=== PATIENT | female | born 1940 | race Caucasian/White ===

== ENCOUNTER 2016-11-30 09:31 | Emergency (ER) | payer MEDICARE, OTHER ==
[~2016-11-30] VITALS: Ht 167.6 cm; Wt 93.0 kg
[~2016-11-30 09:31] MED LIST: AMBIEN10 MG PO; CALCIUM600 MG PO; CARDIZEM CD360 MG PO; CATAPRES0.1 MG PO; CYCLOBENZAPRINE10 MG PO; DIOVAN160 MG PO; EFFEXOR XR75 MG PO; OMEPRAZOLE40 MG PO; ONDANSETRON ODT4 MG PO
[2016-11-30] MEDS ORDERED: BACLOFEN10 MG PO (10:40)
[2016-11-30] MEDS ORDERED: ATORVASTATIN CA80 MG PO (10:40)
[2016-11-30] MEDS ORDERED: WELLBUTRIN XL150 MG PO (10:40)
[2016-11-30] MEDS ORDERED: BUSPIRONE HCL5 MG PO (10:41)
[2016-11-30] MEDS ORDERED: CLOPIDOGREL75 MG PO (10:41)
[2016-11-30] MEDS ORDERED: GLUCAGEN1 M1 INJ (10:41)
[2016-11-30] MEDS ORDERED: ACID CONTROLLER20 MG PO (10:41)
[2016-11-30] MEDS ORDERED: GLUTOSE 1537.5 GM PO (10:42)
[2016-11-30] MEDS ORDERED: LORAZEPAM0.5 MG PO (10:43)
[2016-11-30] MEDS ORDERED: TRAMADOL HCL50 MG PO (10:44)
[2016-11-30] MEDS ORDERED: COZAAR100 MG PO (10:44)
[2016-11-30] MEDS ORDERED: PANTOPRAZOLE SO40 MG PO (10:44)
[2016-11-30] MEDS ORDERED: MACROBID 100 M100 MG PO (12:09)
--- NOTE | 2016-11-30 15:24 | EKG ---
[facility] [address] [facility] [place] [address] Signed Sinus tachycardia Anterolateral infarct (cited on or before 26-FEB-2016) Abnormal ECG When compared with ECG of 26-FEB-2016 09:44, Questionable change in initial forces of Lateral leads Confirmed by MATEO MENDEZ MD ([id number]) on 11/30/2016 3:24:34 PM Electronically Signed By: MATEO MENDEZ MD 11/30/16 1524 PATIENT NAME: FAVIOLAJUAN CARLOS JANET Electrocardiogram DATE OF : 38 PHYSICIAN: MATEO MENDEZ MD REPORT #: [id number] REPORT IS CONFIDENTIAL AND NOT TO BE RELEASED WITHOUT AUTHORIZATION
[2016-12-01] MEDS ORDERED: NORCO 5-325 TA1 EACH PO (09:22)
== END 2016-11-30 13:00 | disposition home or self-care (01) ==
LOC: ED 09:31
DX: N39.0 Urinary tract infection, site not specified (principal); R40.4 Transient alteration of awareness; R47.1 Dysarthria and anarthria; Z90.710 Acquired absence of both cervix and uterus; Z90.49 Acquired absence of other specified parts of digestive tract; Z88.2 Allergy status to sulfonamides; Z88.8 Allergy status to other drugs, medicaments and biological substances; Z79.899 Other long term (current) drug therapy
CPT/HCPCS: 80053; 81001; 85025; 87077; 87088; 87186; 93005; 93010; 96374; 96375; 99284; J0696; J2405

== ENCOUNTER 2016-12-01 06:54 | Emergency (ER) | payer MEDICARE, OTHER ==
[~2016-12-01] VITALS: Ht 167.6 cm; Wt 93.0 kg
[~2016-12-01 06:54] MED LIST changes: +ACID CONTROLLER20 MG PO; +ATORVASTATIN CA80 MG PO; +BACLOFEN10 MG PO; +BUSPIRONE HCL5 MG PO; +CLOPIDOGREL75 MG PO; +COZAAR100 MG PO; +GLUCAGEN1 M1 INJ; +GLUTOSE 1537.5 GM PO; +LORAZEPAM0.5 MG PO; +MACROBID 100 M100 MG PO; +PANTOPRAZOLE SO40 MG PO; +TRAMADOL HCL50 MG PO; +WELLBUTRIN XL150 MG PO
[2016-12-01] MEDS ORDERED: NORCO 5-325 TA1 EACH PO (09:22)
== END 2016-12-01 10:05 | disposition home or self-care (01) ==
LOC: ED 06:54
DX: S06.0X0A Concussion without loss of consciousness, initial encounter (principal); S16.1XXA Strain of muscle, fascia and tendon at neck level, initial encounter; S00.83XA Contusion of other part of head, initial encounter; E11.9 Type 2 diabetes mellitus without complications; Z87.01 Personal history of pneumonia (recurrent); Z86.73 Personal history of transient ischemic attack (TIA), and cerebral infarction without residual deficits; Z90.710 Acquired absence of both cervix and uterus; Z90.89 Acquired absence of other organs; Z90.49 Acquired absence of other specified parts of digestive tract; Z88.2 Allergy status to sulfonamides; Z88.6 Allergy status to analgesic agent; Z88.8 Allergy status to other drugs, medicaments and biological substances; Z79.899 Other long term (current) drug therapy; W06.XXXA Fall from bed, initial encounter
CPT/HCPCS: 70450; 70486; 72125; 73560; 96374; 96375; 99284; J1170; J2405

== ENCOUNTER 2016-12-05 09:23 | Emergency (ER) | payer MEDICARE, OTHER ==
[~2016-12-05] VITALS: Ht 167.6 cm; Wt 93.0 kg
[~2016-12-05 09:23] MED LIST changes: +NORCO 5-325 TA1 EACH PO
== END 2016-12-05 12:40 | disposition home or self-care (01) ==
LOC: ED 09:23
DX: K59.00 Constipation, unspecified (principal); R11.2 Nausea with vomiting, unspecified; Z88.2 Allergy status to sulfonamides; Z88.6 Allergy status to analgesic agent; Z88.8 Allergy status to other drugs, medicaments and biological substances; Z86.73 Personal history of transient ischemic attack (TIA), and cerebral infarction without residual deficits
CPT/HCPCS: 74000; 80053; 83690; 85025; 96361; 96374; 99283; J2405; J7030

== ENCOUNTER 2016-12-14 15:26 | Emergency (ER) | payer MEDICARE, OTHER ==
[~2016-12-14] VITALS: Ht 167.6 cm; Wt 93.0 kg
[2016-12-14] MEDS ORDERED: AMOX TR-K CLV1 EAC1 PO (15:39)
[2016-12-14] MEDS ORDERED: PLAVIX75 MG PO (19:17)
== END 2016-12-14 20:17 | disposition home or self-care (01) ==
LOC: ED 15:26
DX: S05.12XA Contusion of eyeball and orbital tissues, left eye, initial encounter (principal); S00.81XA Abrasion of other part of head, initial encounter; Z79.01 Long term (current) use of anticoagulants; Z87.01 Personal history of pneumonia (recurrent); Z86.73 Personal history of transient ischemic attack (TIA), and cerebral infarction without residual deficits; Z90.710 Acquired absence of both cervix and uterus; Z90.89 Acquired absence of other organs; Z90.49 Acquired absence of other specified parts of digestive tract; Z88.2 Allergy status to sulfonamides; Z88.6 Allergy status to analgesic agent; Z88.8 Allergy status to other drugs, medicaments and biological substances; Z79.899 Other long term (current) drug therapy; W19.XXXA Unspecified fall, initial encounter
CPT/HCPCS: 70450; 72125; 85610; 85730; 99284

== ENCOUNTER 2017-02-13 19:29 | Emergency (ER) | payer MEDICARE, OTHER ==
[~2017-02-13] VITALS: Ht 167.6 cm; Wt 93.0 kg
[~2017-02-13 19:29] MED LIST changes: +AMOX TR-K CLV1 EAC1 PO; +PLAVIX75 MG PO
== END 2017-02-13 21:18 | disposition home or self-care (01) ==
LOC: ED 19:29
DX: S40.011A Contusion of right shoulder, initial encounter (principal); Z86.73 Personal history of transient ischemic attack (TIA), and cerebral infarction without residual deficits; Z90.710 Acquired absence of both cervix and uterus; Z90.49 Acquired absence of other specified parts of digestive tract; Z98.890 Other specified postprocedural states; Z88.2 Allergy status to sulfonamides; Z88.6 Allergy status to analgesic agent; Z88.8 Allergy status to other drugs, medicaments and biological substances; Z79.899 Other long term (current) drug therapy; W05.0XXA Fall from non-moving wheelchair, initial encounter
CPT/HCPCS: 73030; 99283

== ENCOUNTER 2017-04-30 12:15 | Emergency (ER) | payer MEDICARE, OTHER ==
[~2017-04-30] VITALS: Ht 167.6 cm; Wt 79.4 kg
[2017-04-30] MEDS ORDERED: LOPERAMIDE2 MG PO (12:39)
== END 2017-04-30 14:33 | disposition home or self-care (01) ==
LOC: ED 12:15
DX: T14.8XXA Other injury of unspecified body region, initial encounter (principal); S70.02XA Contusion of left hip, initial encounter; M32.9 Systemic lupus erythematosus, unspecified; Z86.73 Personal history of transient ischemic attack (TIA), and cerebral infarction without residual deficits; Z88.0 Allergy status to penicillin; Z88.2 Allergy status to sulfonamides; Z88.8 Allergy status to other drugs, medicaments and biological substances; Z79.899 Other long term (current) drug therapy; Z90.710 Acquired absence of both cervix and uterus; Z90.49 Acquired absence of other specified parts of digestive tract; G62.9 Polyneuropathy, unspecified; W18.30XA Fall on same level, unspecified, initial encounter
CPT/HCPCS: 73502; 99283

== ENCOUNTER 2017-04-30 18:34 | Emergency (ER) | payer MEDICARE, OTHER ==
[~2017-04-30] VITALS: Ht 167.6 cm; Wt 79.4 kg
[~2017-04-30 18:34] MED LIST changes: +LOPERAMIDE2 MG PO
== END 2017-04-30 21:30 | disposition home or self-care (01) ==
LOC: ED 18:34
DX: S80.01XA Contusion of right knee, initial encounter (principal); E78.5 Hyperlipidemia, unspecified; G62.9 Polyneuropathy, unspecified; K21.9 Gastro-esophageal reflux disease without esophagitis; Z90.710 Acquired absence of both cervix and uterus; Z90.49 Acquired absence of other specified parts of digestive tract; Z98.890 Other specified postprocedural states; Z88.2 Allergy status to sulfonamides; Z88.8 Allergy status to other drugs, medicaments and biological substances; Z79.899 Other long term (current) drug therapy; W06.XXXA Fall from bed, initial encounter
CPT/HCPCS: 80053; 81001; 83690; 85025; 87077; 87088; 87186; 96374; 99284; J2405

== ENCOUNTER 2017-05-06 08:20 | Emergency (ER) | payer MEDICARE, OTHER ==
[~2017-05-06] VITALS: Ht 167.6 cm; Wt 79.4 kg
[2017-05-06] MEDS ORDERED: PAIN RELIEVER500 MG PO (10:38)
--- NOTE | 2017-05-06 18:29 | EKG ---
[facility] [address] [facility] [place] [address] Signed Normal sinus rhythm Possible Anterior infarct (cited on or before 26-FEB-2016) Abnormal ECG When compared with ECG of 30-NOV-2016 09:43, Minimal criteria for Inferior infarct are no longer present Questionable change in initial forces of Lateral leads QT has shortened Confirmed by MATEO MENDEZ MD ([id number]) on 05/06/2017 6:29:35 PM Electronically Signed By: MATEO MENDEZ MD 05/06/17 1829 PATIENT NAME: FAVIOLAJUAN CARLOS GONZALES Electrocardiogram DATE OF : 38 PHYSICIAN: MATEO MENDEZ MD REPORT #: [id number] REPORT IS CONFIDENTIAL AND NOT TO BE RELEASED WITHOUT AUTHORIZATION
== END 2017-05-06 11:27 | disposition home or self-care (01) ==
LOC: ED 08:20
DX: R51 Headache (principal); E78.5 Hyperlipidemia, unspecified; K21.9 Gastro-esophageal reflux disease without esophagitis; Z87.01 Personal history of pneumonia (recurrent); Z88.2 Allergy status to sulfonamides; Z88.8 Allergy status to other drugs, medicaments and biological substances; Z79.899 Other long term (current) drug therapy
CPT/HCPCS: 70450; 84484; 85651; 93005; 93010; 99284

== ENCOUNTER 2017-05-15 10:46 | Emergency (ER) | payer MEDICARE, OTHER ==
[~2017-05-15] VITALS: Ht 167.6 cm; Wt 79.4 kg
[~2017-05-15 10:46] MED LIST changes: +PAIN RELIEVER500 MG PO
== END 2017-05-15 13:48 | disposition home or self-care (01) ==
LOC: ED 10:46
PROC: 0T9B70Z Drainage of Bladder with Drainage Device, Via Natural or Artificial Opening (ICD-10-PCS; principal; 2017-05-15)
DX: K29.70 Gastritis, unspecified, without bleeding (principal); R51 Headache; K21.9 Gastro-esophageal reflux disease without esophagitis; M32.9 Systemic lupus erythematosus, unspecified; G62.9 Polyneuropathy, unspecified; Z87.01 Personal history of pneumonia (recurrent); Z86.73 Personal history of transient ischemic attack (TIA), and cerebral infarction without residual deficits; Z90.710 Acquired absence of both cervix and uterus; Z90.49 Acquired absence of other specified parts of digestive tract; Z90.89 Acquired absence of other organs; Z88.2 Allergy status to sulfonamides; Z88.6 Allergy status to analgesic agent; Z88.8 Allergy status to other drugs, medicaments and biological substances; Z79.899 Other long term (current) drug therapy
CPT/HCPCS: 36415; 51701; 80053; 81001; 85025; 87088; 96361; 96374; 99283; J2405; J7030

== ENCOUNTER 2017-06-21 19:14 | Emergency (ER) | payer MEDICARE, OTHER ==
[~2017-06-21] VITALS: Ht 167.6 cm; Wt 79.4 kg
== END 2017-06-21 22:15 | disposition home or self-care (01) ==
LOC: ED 19:14
DX: S40.011A Contusion of right shoulder, initial encounter (principal); S70.01XA Contusion of right hip, initial encounter; M54.2 Cervicalgia; G89.29 Other chronic pain; E78.5 Hyperlipidemia, unspecified; K21.9 Gastro-esophageal reflux disease without esophagitis; Z87.01 Personal history of pneumonia (recurrent); Z88.2 Allergy status to sulfonamides; Z88.6 Allergy status to analgesic agent; Z88.8 Allergy status to other drugs, medicaments and biological substances; Z79.899 Other long term (current) drug therapy; W06.XXXA Fall from bed, initial encounter
CPT/HCPCS: 70450; 72125; 73030; 73502; 99284

== ENCOUNTER 2017-07-29 14:00 | Emergency (ER) | payer MEDICARE, OTHER ==
[~2017-07-29] VITALS: Ht 167.6 cm; Wt 80.3 kg
[2017-07-29] MEDS ORDERED: AUGMENTIN 875-1 EACH PO (14:38)
[2017-07-29] MEDS ORDERED: HYDROXYZINE HCL25 MG PO (14:39)
== END 2017-07-29 17:48 | disposition home or self-care (01) ==
LOC: ED 14:00
DX: M25.551 Pain in right hip (principal); G89.29 Other chronic pain; F03.90 Unspecified dementia, unspecified severity, without behavioral disturbance, psychotic disturbance, mood disturbance, and anxiety; E78.5 Hyperlipidemia, unspecified; Z86.73 Personal history of transient ischemic attack (TIA), and cerebral infarction without residual deficits; K21.9 Gastro-esophageal reflux disease without esophagitis; I10 Essential (primary) hypertension; F32.9 Major depressive disorder, single episode, unspecified; F41.9 Anxiety disorder, unspecified; Z88.2 Allergy status to sulfonamides; Z88.6 Allergy status to analgesic agent; Z88.8 Allergy status to other drugs, medicaments and biological substances; Z79.899 Other long term (current) drug therapy
CPT/HCPCS: 73502; 80048; 85025; 85610; 85730; 96374; 96375; 99283; J1170; J2060; J2405

== ENCOUNTER 2019-07-19 16:46 | Emergency (ER) | payer MEDICARE, OTHER ==
[~2019-07-19] VITALS: Ht 167.6 cm; Wt 95.2 kg
[~2019-07-19 16:46] MED LIST changes: +AUGMENTIN 875-1 EACH PO; +HYDROXYZINE HCL25 MG PO
--- OUTSIDE RECORDS SUMMARY | 2019-07-19 16:48 | XMS ---
PreManage Notification: JUAN CARLOS SALMERON Security Front End Developer Events No recent Security Events currently on file CRITERIA MET - PDMP CARE PROVIDERS Name Unknown Alf Facility Current PHONE: [phone] Lorena Lira Application Support Engineer/Wildlife Removal Specialist 07/22/2017-Current PHONE: [phone] Lorena Lira Primary Care 07/22/2017-Current PHONE: [phone] Isidro Florian MD PHONE: Unknown DR NENA MOORE Primary Care 12/24/2016-Current PHONE: [phone] Kendall Saldana Primary Care Current [place] PHONE: Unknown Amanda [facility] Current Orthopedic Surgery \T\ [facility] PHONE: Unknown Alisha has no Care Guidelines for this patient. Care History Social 12/28/2016 [facility] PT RESIDES AT [facility]. [place] VISIT COUNT (12 MO.) [address] [place] [address] TOTAL 1 NOTE: Visits indicate total known visits. ED/UCC VISIT TRACKING (12 MO.) 07/19/2019 16:[address] [facility] [place] TYPE: Emergency COMPLAINT: - CHEST PAIN INPATIENT VISIT TRACKING (12 MO.) No inpatient visits to display in this time frame [email or web address]
[2019-07-19] MEDS ORDERED: CRANBERRY450 M2 PO (17:09)
[2019-07-19] MEDS ORDERED: PROTONIX40 MG PO (17:11)
[2019-07-19] MEDS ORDERED: GABAPENTIN300 MG PO (17:29)
[2019-07-19] MEDS ORDERED: CEFUROXIME500 MG PO (18:47)
[2019-07-19] MEDS ORDERED: LEVAQUIN750 MG PO (18:54)
--- NOTE | 2019-07-19 20:57 | EKG ---
[facility] [address] [facility] [place] [address] Signed Normal sinus rhythm Left axis deviation Possible Anterolateral infarct , age undetermined Abnormal ECG No previous ECGs available Confirmed by MATEO MENDEZ MD ([id number]) on 07/19/2019 8:57:35 PM Electronically Signed By: MATEO MENDEZ MD 07/19/192056 PATIENT NAME: JUAN CARLOS SALMERON Electrocardiogram DATE OF : 38 PHYSICIAN: MATEO MENDEZ MD REPORT #: [id number] REPORT IS CONFIDENTIAL AND NOT TO BE RELEASED WITHOUT AUTHORIZATION
== END 2019-07-19 22:40 | disposition home or self-care (01) ==
LOC: ED 16:46
DX: N39.0 Urinary tract infection, site not specified (principal); R07.9 Chest pain, unspecified; J18.9 Pneumonia, unspecified organism; Z66 Do not resuscitate; E78.5 Hyperlipidemia, unspecified; Z86.73 Personal history of transient ischemic attack (TIA), and cerebral infarction without residual deficits; K21.9 Gastro-esophageal reflux disease without esophagitis; F32.9 Major depressive disorder, single episode, unspecified; F41.9 Anxiety disorder, unspecified; I10 Essential (primary) hypertension; Z88.2 Allergy status to sulfonamides; Z88.6 Allergy status to analgesic agent; Z88.8 Allergy status to other drugs, medicaments and biological substances; Z79.899 Other long term (current) drug therapy
CPT/HCPCS: 71045; 80053; 81001; 83735; 84484; 85025; 93005; 93010; 96365; 99285-25; J0696

== ENCOUNTER 2020-12-10 22:42 | Emergency (ER) | payer MEDICARE, OTHER ==
[~2020-12-10] VITALS: Ht 167.6 cm; Wt 106.0 kg
[~2020-12-10 22:42] MED LIST changes: +CEFUROXIME500 MG PO; +CRANBERRY450 M2 PO; +GABAPENTIN300 MG PO; +LEVAQUIN750 MG PO; +PROTONIX40 MG PO
--- OUTSIDE RECORDS SUMMARY | 2020-12-10 22:46 | XMS ---
PreManage Notification: JUAN CARLOS SALMERON Security Flatwork Catcher Events No recent Security Events currently on file CRITERIA MET - MARIA TERESAP CARE PROVIDERS ELYSSA PANTOJA Measurement Operator [facility] PHONE: [phone] LACHELLE GEE [facility] 07/20/2019-Current PHONE: [phone] CRISTAL JAFFE Internal Medicine Current PHONE: [phone] Lorena Lira Procurement Engineer/Financial Services Associate 06/24/2020-Current PHONE: [phone] SHILO HURTADO Nurse Practitioner Current PHONE: [phone] ALE RIVERA Nurse Practitioner: Current PHONE: [phone] THUAN Nurse Practitioner Eduard GONZALES PHONE: [phone] [facility] Current PHONE: [phone] LEI CHAUDHRY [facility] Current PHONE: [phone] Alisha has no Care Guidelines for this patient. Care History Social 12/28/2016 [facility] PT RESIDES AT [facility] [place] VISIT COUNT ([address] MO[address] [facility] TOTAL 1 NOTE: Visits indicate total known visits. ED/UCC VISIT TRACKING (12 MO.) 12/10/2020 22[facility] [place] TYPE: Emergency COMPLAINT: - POSS ASPIRATION INPATIENT VISIT TRACKING (12 MO.) No inpatient visits to display in this time frame [id number]
[2020-12-10] MEDS ORDERED: CETIRIZINE HCL10 MG PO (23:47)
[2020-12-10] MEDS ORDERED: MELATONIN3 MG PO (23:48)
[2020-12-10] MEDS ORDERED: OMEGA 3 1,0001 EACH PO (23:49)
[2020-12-10] MEDS ORDERED: MACROBID 100 M100 MG PO (23:50)
[2020-12-10] MEDS ORDERED: SENNA-PLUS TAB1 EACH PO (23:51)
[2020-12-10] MEDS ORDERED: PROAIR DIGIHAL90 MCG (23:54)
[2020-12-11] MEDS ORDERED: CEPHALEXIN500 MG PO (03:04)
== END 2020-12-11 03:30 ==
LOC: ED 22:42
DX: N39.0 Urinary tract infection, site not specified (principal); Z20.822 Contact with and (suspected) exposure to COVID-19; E78.5 Hyperlipidemia, unspecified; K21.9 Gastro-esophageal reflux disease without esophagitis; E11.42 Type 2 diabetes mellitus with diabetic polyneuropathy; M19.90 Unspecified osteoarthritis, unspecified site; I10 Essential (primary) hypertension; Z88.2 Allergy status to sulfonamides; Z88.6 Allergy status to analgesic agent; Z88.1 Allergy status to other antibiotic agents; Z88.8 Allergy status to other drugs, medicaments and biological substances; Z79.899 Other long term (current) drug therapy
CPT/HCPCS: 71045; 80053; 81001; 83605; 85025; 96365; 99284-25; C9803; J0696; U0003

== ENCOUNTER 2021-04-14 09:00 | Day surgery (SDC) | payer MEDICARE, OTHER ==
[~2021-04-14] VITALS: Ht 167.6 cm; Wt 104.0 kg
[~2021-04-14 09:00] MED LIST changes: +CEPHALEXIN500 MG PO; +CETIRIZINE HCL10 MG PO; +DULCOLAX10 MG PR; +MELATONIN3 MG PO; +OMEGA 3 1,0001 EACH PO; +OMEPRAZOLE20 M1 PO; +PROAIR DIGIHAL90 MCG; +PROBIOTIC1 EAC5 PO; +SENNA-PLUS TAB1 EACH PO
--- NOTE | 2021-04-14 14:05 | NUR ---
04/14/21 1405 Mariela Patiño 1237 PT ARRIVED IN PACU SLEEPY WITH NO C/O'S. ABD BINDER IN PLACE. 1250 RESTING. REU. 1305 TC TO ANESTHESIA R/T LOW BP. NEW ORDERS RECEIVED. 1310 LR BOLUS INFUSING. 1315 CHANGED PT'S ATTENDS AND LINEN UNDERNEATH WITH MINIMAL C/O'S. ASKING TO GO HOME. REMINDED OF SURGERY AND CAN LEAVE SOON. 1335 ANESTHESIA AT BEDSIDE GIVING EPHEDRINE FOR LOW BP WITH NO SUCCESS. 1338 ANESTHESIA GAVE ATROPINE FOR LOW BP. 1345 BP BACK IN NORMAL RANGE OF PREOP PRESSURE. 1350 TO DS. REPORT GIVEN TO RN.
--- NOTE | 2021-04-14 14:30 | NUR ---
[id number]: PT ARRIVES TO DS TREATMENT ROOM FROM PACU DROWSY. PT EYES CLOSED ON ENTRANCE, AROUSES WITH VERBAL STIMULATION. PT STATES FEELING COMFORTABLE WHEN ASKED, DENIES NAUSEA. PROVIDED ICED WATER PER REQUEST, SMALL SIPS TOLERATED. PT DAUGHTER IN ROOM AT BEDSIDE. LARGE DEPENDS IN DONNED WITH 2 RN ASSIST BY ROLLING PT SIDE TO SIDE. PT CONTINUOUSLY ASKS, "LET'S GO HOME." PT EDUCATED ABOUT STAYING ONE HOUR POST-OP PRIOR TO DC HOME. VERBAL REPORT GIVEN TO TIFFANY JAMA.
--- NOTE | 2021-04-14 15:00 | NUR ---
1500-PATIENT RESTING IN BED. PATIENT FALLS ASLEEP EASY BUT AWAKES TO VERBAL STIMULATION. VSS. NO NAUSEA. PATIENT HAS AN OCCASIONAL COUGH. TAKES SIPS OF WATER. DRESSING IS CLEAN, DRY, AND INTACT. DARK YELLOW URINE IS NOTED IN WELSH BAG. OFFERED PATIENT SNACKS BUT DECLINES. PATIENT STATES SHE WOULD LIKE TO GO HOME. 1515-RN CHANGED PATIENTS GOWN TO HER OWN. DISCHARGE INSTURCTIONS GIVEN TO PATIENTS DAUGHTER ALEXY. ALEXY VERBALIZED UNDERSTANDING. IAM WILL GIVE ALL PAPER WORK TO SNF. 1530-3 RN ASSIST PUTTING DAO MAT UNDER PATIENT THEN MOVED PATIENT TO WHEELCHAIR. PATIENT TOLERATED WELL. 1542-PATIENT LEFT DAY SURGERY IN OWN WHEELCHAIR PUSHED BY CRISTOPHER CORNEJO.
--- NOTE | 2021-04-16 11:08 | OR ---
[facility] [address] [facility] [place], [place] [address] Signed DATE OF OPERATION: 04/14/2021 SURGEON: Rufus Lerma MD PREOPERATIVE DIAGNOSES: 1. Neurogenic bladder. 2. Urinary retention, secondary to #1. 3. Recurrent urinary tract infections. POSTOPERATIVE DIAGNOSES: 1. Neurogenic bladder. 2. Urinary retention, secondary to #1. 3. Recurrent urinary tract infections. NAMES OF PROCEDURES: 1. Diagnostic cystoscopy. 2. Insertion of suprapubic cystostomy tube. ANESTHESIA: General. ESTIMATED BLOOD LOSS: Minimal. COMPLICATIONS: None. SPECIMENS: None. DRAINS: An 18-Niuean [place] tip Patel catheter inserted into the lower abdomen as a suprapubic tube, connected to the gravity drainage. INDICATIONS FOR PROCEDURE: Ms. Arreola is a very pleasant 80-year-old female with a recent history of cerebrovascular accident with associated hemiplegia. She recently underwent formal urodynamic studies, which confirmed a hypotonic neurogenic bladder and since that time, her bladder has been managed with chronic indwelling Patel catheter. Her daughter is now requesting that she undergo suprapubic tube placement because the patient complains Electronically Signed By: RUFUS LERMA MD 04/16/21 1108 PATIENT NAME: JUAN CARLOS ARREOLA OPERATIVE REPORT DATE OF : 38 REPORT #: [id number] PHYSICIAN: RUFUS LERMA MD PCP: NO PRIMARY CARE PHYSICIAN REPORT IS CONFIDENTIAL AND NOT TO BE RELEASED WITHOUT AUTHORIZATION [facility] [address] [place], [place] [address] Signed of significant discomfort in the urethral area with a Patel catheter in place. She has been off her Plavix for 4 days now. A detailed discussion of the risks and benefits of the procedure was carried out in the clinic last Wednesday and the patient presents today to undergo suprapubic cystostomy tube insertion. OPERATIVE FINDINGS: 1. Diagnostic cystoscopy reveals no evidence of any suspicious masses, lesions, or stones. Bilateral ureteral orifices are in their normal anatomic location effluxing clear urine. 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 2. An 18-Niuean [place] tip Patel catheter was inserted into the dome of the patient's bladder while under direct visualization without difficulty. An 18-Niuean [place] tip Patel catheter was inserted and then connected to gravity drainage. DESCRIPTION OF PROCEDURE: After informed consent was obtained, the patient was taken back to the operating room. She was sedated and then transferred to the OR table. General anesthesia was then induced. She was then placed in a low dorsal lithotomy position and her lower abdomen and genitalia were then prepped and draped in standard sterile fashion. Using a 30-degree lens on a 22.5-Niuean introducer, rigid cystoscope was inserted through the urethra and into her bladder under direct visualization. Panendoscopic views of the bladder were then obtained. Please see above findings. I then watched the dome of the bladder as I inserted a spinal needle into her lower abdomen, approximately 2 fingerbreadths above her pubic bone. The spinal needle went through the bladder easily and gave me a good idea of where the final tube needs to be placed. An #11 blade was then used to make an approximately 1 cm incision over the area of the planned cystostomy tube. A trocar was then inserted through this incision and into the dome of the bladder under direct visualization via diagnostic cystoscopy. The trocar went in without any associated trauma to the remainder of the bladder. The trocar was removed and the 18-Niuean [place] tip Patel catheter was inserted into the dome of the patient's bladder, again under direct visualization. I watched as 12 mL of sterile water was placed into the Patel catheter balloon. The balloon filled up without any issue. The patient's bladder was then drained of all the irrigant and connected to gravity drainage while the tube was then secured using 0 silk. The suprapubic incision was also closed around the tube using 3-0 Vicryl. The suprapubic tube was then irrigated manually to confirm placement and irrigated quite normally and there was very minimal pink tinge to the urine. The catheter was then placed back to gravity drainage and the patient's suprapubic tube was then cleaned and dried and bacitracin was applied along with a dry dressing. The procedure was then terminated. The patient tolerated the procedure well without any complication. She will now be transferred to the postanesthesia care unit in stable condition. Electronically Signed By: RUFUS LERMA MD 04/16/21 1108 PATIENT NAME: JUAN CARLOS ARREOLA OPERATIVE REPORT DATE OF : 38 REPORT #: [id number] PHYSICIAN: RUFUS LERMA MD PCP: NO PRIMARY CARE PHYSICIAN REPORT IS CONFIDENTIAL AND NOT TO BE RELEASED WITHOUT AUTHORIZATION [address] [address] Signed DISPOSITION: I discussed the details of today's procedure with the patient's daughter and answered all of her questions. She will go home today with oxycodone 5 mg one tablet q.8 hours p.r.n. pain dispense #15 along with cefdinir 300 mg 1 tablet p.o. b.i.d. for a total of 7 days. She will be scheduled return to clinic in 5 to 6 weeks for her 1st suprapubic cystostomy tube change. This will be performed by me personally and the exchange will be performed using a Sensor wire. MD ROWDY Nayak/EVELYNEL /[id number] Copies: ~ Electronically Signed By: RUFUS LERMA MD 04/16/21 1108 PATIENT NAME: JUAN CARLOS ARREOLA JANET OPERATIVE REPORT DATE OF : 38 REPORT #: [id number] PHYSICIAN: RUFUS LERMA MD PCP: NO PRIMARY CARE PHYSICIAN REPORT IS CONFIDENTIAL AND NOT TO BE RELEASED WITHOUT AUTHORIZATION
== END 2021-04-14 15:42 | disposition home or self-care (01) ==
LOC: OPS 09:00 → DS 09:00 → OPS 10:20
PROVIDERS: ATTEND Urology
PROC: 0TJB8ZZ Inspection of Bladder, Via Natural or Artificial Opening Endoscopic (ICD-10-PCS; principal; 2021-04-14 10:20)
DX: N31.9 Neuromuscular dysfunction of bladder, unspecified (principal); N39.0 Urinary tract infection, site not specified; Z87.440 Personal history of urinary (tract) infections; N39.42 Incontinence without sensory awareness; I69.359 Hemiplegia and hemiparesis following cerebral infarction affecting unspecified side; I10 Essential (primary) hypertension; E78.00 Pure hypercholesterolemia, unspecified; E11.42 Type 2 diabetes mellitus with diabetic polyneuropathy; Z88.6 Allergy status to analgesic agent; Z88.2 Allergy status to sulfonamides; Z88.8 Allergy status to other drugs, medicaments and biological substances; G47.33 Obstructive sleep apnea (adult) (pediatric); G89.29 Other chronic pain; K21.9 Gastro-esophageal reflux disease without esophagitis
CPT/HCPCS: 00860; J0131; J0330; J0461; J0690; J1100; J1885; J2405; J2704; J2765; J3010; J7121

== ENCOUNTER 2021-07-04 12:36 | Emergency (ER) | payer MEDICARE, OTHER ==
[~2021-07-04] VITALS: Ht 167.6 cm; Wt 103.9 kg
--- OUTSIDE RECORDS SUMMARY | 2021-07-04 12:42 | XMS ---
PreManage Notification: JUAN CARLOS SALMERON Security Sewing Supervisor Events No recent Security Events currently on file CRITERIA MET - PDMP CARE PROVIDERS ELYSSA PANTOJA Mortgage Processing Clerk [facility] PHONE: [phone] LACHELLE GEE [facility] 07/20/2019-Current PHONE: [phone] CRISTAL JAFFE Internal Medicine Current PHONE: Unknown Lorena Lira Locomotive Electrician/Sales Trainee 06/24/2020-Current PHONE: [phone] SHILO HURTADO Nurse Practitioner Current PHONE: [phone] ALE RIVERA Nurse Practitioner: Family Current PHONE: Unknown JOSE ROBERTO BAZZI Internal Medicine Current PHONE: [phone] MALLORIE FARAH Nurse Practitioner Current PHONE: [phone] TOBY CAMPBELL I. Physician Heat And Vent Aircraft Mechanic Current PHONE: Unknown Nurse Kyara LAROSE PHONE: [phone] CARLOS [facility] Nursing [facility] Current PHONE: Unknown [facility] Current PHONE: [phone] ADAN PORTER Physician Current PHONE: Unknown Alisha has no Care Guidelines for this patient. Care History Social 12/28/2016 [facility] PT RESIDES AT [facility]. [place] VISIT COUNT (12 MO.) [address] [facility] [address] TOTAL 2 NOTE: Visits indicate total known visits. ED/UCC VISIT TRACKING (12 MO.) 07/04/2021 12:[address] [facility] [place] TYPE: Emergency COMPLAINT: - CATHETER ISSUES 12/10/2020 22:43 [facility] [place] TYPE: Emergency COMPLAINT: - POSS ASPIRATION DIAGNOSES: - Other nursing home (current) drug therapy - Hyperlipidemia, unspecified - Essential (primary) hypertension - Allergy status to other drugs, medicaments and biological substances - Unspecified osteoarthritis, unspecified site - Allergy status to sulfonamides - Allergy status to analgesic agent - Gastro-esophageal reflux disease without esophagitis - Fever, unspecified - Urinary tract infection, site not specified - Type 2 diabetes mellitus with diabetic polyneuropathy - Allergy status to other antibiotic agents INPATIENT VISIT TRACKING (12 MO.) No inpatient visits to display in this time frame [email or web address]
== END 2021-07-04 14:10 | disposition home or self-care (01) ==
LOC: ED 12:36
DX: Z46.6 Encounter for fitting and adjustment of urinary device (principal); E78.5 Hyperlipidemia, unspecified; K21.9 Gastro-esophageal reflux disease without esophagitis; I10 Essential (primary) hypertension; Z88.2 Allergy status to sulfonamides; Z88.1 Allergy status to other antibiotic agents; Z88.6 Allergy status to analgesic agent; Z79.899 Other long term (current) drug therapy
CPT/HCPCS: 99283